=== PATIENT | female | born 1995 | race Two or more races ===

== ENCOUNTER 2018-12-15 00:19 | Emergency (ER) | payer OTHER ==
[~2018-12-15] VITALS: Ht 160 cm; Wt 65.8 kg
--- NOTE | 2018-12-15 00:38 | NUR ---
ED Nurse Note: Pt arrived ED from home, c/o right big toe was injuried at home by herself. Pt is A/O X 4. Vital signs stable at this time, waitng for orders.
[2018-12-15] MEDS ORDERED: NKM (00:39)
[2018-12-15] MEDS ORDERED: Surgicel 4in x 8in TOPIC ONE (03:00)
[2018-12-15] MEDS ORDERED: ACETAMINOPHEN-1 EAC1 ORAL (03:17)
[2018-12-15] MEDS ORDERED: CEPHALEXIN500 MG ORAL (03:17)
[2018-12-15 03:27] VITALS: BP 124/81
--- NOTE | 2018-12-15 03:27 | NUR ---
ER DISCHARGE NOTE: Patient is cleared to be discharged per Dr. Oscar. The injuried right toe nail was removed by and dressing was applied. Pt is A/Ox4 on room air with stable vital signs. Pt was given D/C and prescription instructions, pt was able to verbalize understanding. Pt's ID band removed. Pt is able to ambulate with steady gait and took all belongings.
--- NOTE | 2018-12-15 05:13 | Emergency Room Report ---
History of Present Illness General Chief Complaint: Lower Extremity Injury Source: Patient Present Illness HPI 23-year-old female presents ED for evaluation. States that tonight she dropped a nightstand onto her right big toe. States there is pain and bleeding to the right big toe. States that the nail looks partially removed. Tetanus is up-to- date. Pain is throbbing, 7 out of 10, nonradiating. Denies any other injuries. No other aggravating relieving factors. Denies any other associated symptoms Allergies: Coded Allergies: No Known Allergies (Unverified , 12/15/18) Patient History Past Medical History: none Past Surgical History: none Pertinent Family History: none Social History: Denies: smoking, alcohol use, drug use Last Menstrual Period: november Now: No Immunizations: UTD Reviewed Nursing Documentation: PMH: Agreed; PSxH: Agreed Nursing Documentation-PMH Past Medical History: No Stated History Review of Systems All Other Systems: negative except mentioned in HPI Physical Exam Vital Signs Date Time Temp Pulse Resp B/P (MAP) Pulse Ox O2 Delivery O2 Flow Rate FiO2 12/15/18 00:36 98.2 94 16 129/85 97 Room Air Sp02 EP Interpretation: reviewed, normal General Appearance: no apparent distress, alert, GCS 15, non-toxic Head: normocephalic Eyes: bilateral eye normal inspection, bilateral eye PERRL ENT: normal ENT inspection Neck: normal inspection Respiratory: normal inspection Cardiovascular #1: normal inspection Gastrointestinal: normal inspection Rectal: deferred Genitourinary: no CVA tenderness Musculoskeletal: other - R big toe nail partialy avulsed from matrix. bleeding noted. full ROM noted to big toe. Neurologic: alert, oriented x3, responsive, motor strength/tone normal, sensory intact, speech normal Psychiatric: normal inspection Skin: normal inspection Lymphatic: normal inspection Procedures Additional Procedure Procedure Narrative Nail removal Patient placed on stretcher under sterile field. I anesthetized big toe using lidocaine digital block. Using scalpel I started to dissect the nail. I was able to get good visualization of the nail bed. There does not appear to be a laceration but there is bleeding from the nail bed. Pressure applied using gauze and Surgicel. Bleeding is controlled. Partially avulsed nail placed back on top of the Surgicel. Toe is then wrapped in Xeroform and Kerlix with bleeding controlled. Medical Decision Making Diagnostic Impression: Primary Impression: Nailbed injury Additional Impression: Nail avulsion ER Course Hospital Course 23-year-old female presents with partially avulsed nail and bleeding from right big toe differential - nailbed laceration, avulsed nail, toe fracture Clinical course Patient placed on stretcher. After initial history , physical exam reveals female in no acute distress. On exam there is bleeding from the right big toe underneath the nail. The nail appears to be partially avulsed from the matrix. Toe has full range of motion with no deformity. She does not suspect fracture and declines x-rays. Tetanus is up-to-date I applied digital block to the toe with lidocaine. Using scalpel I started to remove the nail until I could visualize the nail bed. There appears to be bleeding but no laceration. Pressure and Surgicel applied to control bleeding. Nail was then placed back on top of Surgicel to apply pressure. Toe was then wrapped in Xeroform and Kerlix. patient declined pain meds here There appears to be good hemostasis achieved. Discussed findings with patient. I explained that the nail will eventually fall off but will be kept in the meanwhile for protection. The new nail will eventually grow. Patient needs to have nailbed evaluated after hemostasis achieved via podiatry or orthopedics. i'll Provide podiatry and orthopedic referrals. We'll discharge with appropriate analgesics and antibiotics. Safe for discharge or close outpatient follow-up Diagnosis - nailbed injury, nail avulsion Stable and discharged to home with prescription for Tylenol 3, Keflex. wound Care instructions given. Followup with podiatry/orthopedics. Return to ED if symptoms recur or worsen Last Vital Signs Date Time Temp Pulse Resp B/P (MAP) Pulse Ox O2 Delivery O2 Flow Rate FiO2 12/15/18 03:27 98.1 83 16 124/81 97 Room Air Status: improved Disposition: HOME, SELF-CARE Condition: Stable Scripts Cephalexin* (KEFLEX*) 500 Mg Capsule 500 MG ORAL EVERY 6 HOURS for 7 Days, CAP Prov: Harjeet Oscar MD 12/15/18 Acetaminophen With Codeine (T#3) (TYLENOL #3 TAB*) Y Tab 1 TAB ORAL Q8H PRN for For Pain, #12 TAB Prov: Harjeet Oscar MD 12/15/18 Referrals: NORMA PATHAK M.D. [facility] Open 24 hour /7 days a week by Appointment Only [address] [facility] [id number] Patient Instructions: Nail Avulsion, Nail Bed Injury Harjeet Oscar MD Dec 15, 2018 05:13
== END 2018-12-15 03:27 | disposition home or self-care (01) ==
LOC: EMR 01:03
DX: S91.201A Unspecified open wound of right great toe with damage to nail, initial encounter (principal); W22.8XXA Striking against or struck by other objects, initial encounter; Y92.9 Unspecified place or not applicable
CPT/HCPCS: 99283